=== PATIENT | female | born 1960 | race Hispanic/Latino ===

== ENCOUNTER 2023-08-10 14:47 | Outpatient (CLI) | payer OTHER | END 2023-08-10 14:48 | disposition home or self-care (01) | LOC: CSHMAMMO 14:47 | PROVIDERS: ATTEND Family Medicine | DX: Z12.31 Encounter for screening mammogram for malignant neoplasm of breast (principal); Z13.820 Encounter for screening for osteoporosis; Z78.0 Asymptomatic menopausal state; M81.0 Age-related osteoporosis without current pathological fracture; Z80.3 Family history of malignant neoplasm of breast; Z98.890 Other specified postprocedural states | CPT/HCPCS: 77063; 77067; 77080 ==

== ENCOUNTER 2024-01-09 15:45 | Outpatient (CLI) | payer OTHER | END 2024-01-09 15:46 | disposition home or self-care (01) | LOC: CSHRAD 15:45 | PROVIDERS: ATTEND Physical Medicine & Rehabilitation | DX: R07.89 Other chest pain (principal) ==

== ENCOUNTER 2024-10-14 14:34 | Outpatient (CLI) | payer OTHER | END 2024-10-14 14:35 | disposition home or self-care (01) | LOC: CSHMAMMO 14:34 | PROVIDERS: ATTEND Family Medicine | DX: Z12.31 Encounter for screening mammogram for malignant neoplasm of breast (principal); Z80.3 Family history of malignant neoplasm of breast; Z98.890 Other specified postprocedural states | CPT/HCPCS: 77063; 77067 ==